=== PATIENT | female | born 2000 | race African-American/Black ===

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

== ENCOUNTER 2018-01-03 10:08 | Observation (INO) | payer MEDICAID | END 2018-01-03 11:50 | disposition home or self-care (01) | DRG 955 | LOC: LDRP 10:08 | PROVIDERS: ADMIT Obstetrics & Gynecology; ATTEND Obstetrics & Gynecology | DX: O26.899 Other specified pregnancy related conditions, unspecified trimester (principal); R10.9 Unspecified abdominal pain; Z3A.00 Weeks of gestation of pregnancy not specified | CPT/HCPCS: 59025; 76818; 81002; G0378 ==

== ENCOUNTER 2018-01-05 07:17 | Inpatient (IN) | payer MEDICAID ==
[~2018-01-05] VITALS: Ht 172.7 cm; Wt 70.3 kg
[2018-01-05] MEDS ORDERED: LACT. RINGERS/OXYTOCIN 20UNITS 1,000 ML IV SCH (07:59)
[2018-01-05] MEDS ORDERED: DERMOPLAST 60ML BOTTLE TOP PRN (08:00)
[2018-01-05] MEDS ORDERED: PHISODERM TOP SOLN 240ML BTL TOP PRN (08:00)
[2018-01-05] MEDS ORDERED: LIDOCAINE 2%HCL (LOCAL ANESTH.) INJ 20ML MDV IJ PRN (08:00)
[2018-01-05] MEDS ORDERED: WITCH HAZEL-GLYCERIN PAD TOP PRN (08:00)
[2018-01-05] MEDS: LACTATED RINGER'S 1,000 ML IV SCH ×2 (08:15→15:59)
[2018-01-05 08:47] LABS: Basophils # (auto) 0 uL; Eosinophils # (auto) 0 uL; Eosinophils % (auto) 0.4 % (0.0-7.0); Hemoglobin 9.6 g/dL (12.2-16.2); Monocytes # (auto) 0.5 uL
[2018-01-05 08:49] LABS: Basophils % (auto) 0.5 % (0.0-2.0); Hematocrit 30.2 % (36.0-46.0); Lymphocytes % (auto) 27.7 % (10.0-50.0); Mean Corpuscular Hemoglobin 21.8 pg (28.0-32.0); Mean Corpuscular Hgb Conc. 31.9 g/dL (32.0-36.0); Mean Corpuscular Volume 68.3 fL (80.0-100.0); Monocytes % (auto) 7.2 % (0.0-12.0); Neutrophils # (auto) 4.7 uL; Neutrophils % (auto) 64.2 % (37.0-80.0); Platelet Count (auto) 157 10^3/uL (140-450); Red Blood Cells 4.42 10^6/uL (4.0-5.20); Red Cell Distribution Width 18.3 % (11.8-14.3); White Blood Cell 7.3 10^3/uL (4.4-10.8)
[2018-01-05 09:01] LABS: INR 0.86 (0.9-1.15); Partial Thromboplastin Time 30.7 sec (22.64-33.71); Prothrombin Time 9.4 sec (9.37-12.3)
[2018-01-05 09:02] LABS: Urine Bacteria FEW /hpf (None Seen); Urine Blood Negative /uL (Negative); Urine Specific Gravity 1.006 (1.001-1.035); Urine WBC 19 /hpf (0 - 5)
[2018-01-05 09:06] LABS: Albumin 2.7 g/dL (3.4-5.0); BUN/Creatinine Ratio 7.5; Calcium 7.9 mg/dL (8.5-10.1); Potassium 3.5 mmol/L (3.5-5.1)
[2018-01-05 09:07] LABS: Alcohol, Urine < 3.0 mg/dL (0-5); Amphetamine Screen, Urine NEGATIVE (NEGATIVE); Barbiturate Scree,Urine NEGATIVE (NEGATIVE); Benzodiazephine Screen, Urine NEGATIVE (NEGATIVE); Cannabinoid Screen, Urine NEGATIVE (NEGATIVE); Cocaine Screen, Urine NEGATIVE (NEGATIVE); Opiate Scree,Urine NEGATIVE (NEGATIVE); Phencyclidine Screen, Urine NEGATIVE (NEGATIVE)
[2018-01-05 09:08] LABS: Bilirubin, Total 0.2 mg/dL (0.2-1.0); Total Protein 6.7 g/dL (6.4-8.2)
[2018-01-05] MEDS ORDERED: NALBUPHINE HCL 10 MG/1ml INJECTION IV PRN (18:15)
[2018-01-05] MEDS ORDERED: LIDOCAINE HCL 2 %PF INJ 10ML AMP IJ ONE ×2 (19:30→20:30)
[2018-01-05] MEDS ORDERED: fentaNYL CITRATE 100 MCG/2 ML VL IV ONE ×2 (19:30→20:30)
[2018-01-05] MEDS ORDERED: NALOXONE HCL 0.4 MG/ML VIAL IV PRN (19:30)
[2018-01-05] MEDS ORDERED: ePHEDrine SULFATE 50 MG/ML AMP IV PRN (19:30)
[2018-01-05] MEDS ORDERED: fentaNYL W ROPIVACAINE 150 ML EPI SCH ×2 (19:30→20:30)
[2018-01-05] MEDS ORDERED: fentaNYL W ROPIVACAINE 150 ML EPI ONE (19:50)
[2018-01-05] MEDS ORDERED: ePHEDrine SULFATE 50 MG/ML AMP IV ONE (20:30)
[2018-01-05] MEDS ORDERED: NALOXONE HCL 0.4 MG/ML VIAL IV ONE (20:30)
[2018-01-06 04:00] VITALS: BP 109/55
[2018-01-06 07:30] VITALS: BP 100/58
[2018-01-06] MEDS: IBUPROFEN 600 MG TAB PO PRN (08:27)
[2018-01-06] MEDS: DOCUSATE CALCIUM 240 MG CAP PO SCH (10:30)
[2018-01-06] MEDS ORDERED: INFLUENZA QUAD 2017-2018 0.5 ML SYRG IM ONE (11:15)
[2018-01-06 11:30] VITALS: BP 108/56
[2018-01-06 15:30] VITALS: BP 118/57
[2018-01-06 18:45] VITALS: BP 106/62
[2018-01-06 22:40] VITALS: BP 104/58
[2018-01-07 03:30] VITALS: BP 123/67
[2018-01-07] MEDS: IBUPROFEN 600 MG TAB PO PRN (03:44)
[2018-01-07] MEDS ORDERED: TETANUS-DIPTH-ACEL PERTUSSIS 0.5ML SYRG IM ONE (06:30)
[2018-01-07 07:07] VITALS: BP 112/59
[2018-01-07] MEDS: DOCUSATE CALCIUM 240 MG CAP PO SCH (09:53)
== END 2018-01-07 10:15 | disposition home or self-care (01) | DRG 560 ==
LOC: LDRP 07:17
PROVIDERS: ADMIT Specialist; ATTEND Specialist
PROC: 10E0XZZ Delivery of Products of Conception, External Approach (ICD-10-PCS; principal; 2018-01-05)
PROC: 0HQ9XZZ Repair Perineum Skin, External Approach (ICD-10-PCS; 2018-01-05)
PROC: 00HU33Z Insertion of Infusion Device into Spinal Canal, Percutaneous Approach (ICD-10-PCS; 2018-01-05)
PROC: 3E0R3BZ Introduction of Anesthetic Agent into Spinal Canal, Percutaneous Approach (ICD-10-PCS; 2018-01-05)
DX: O36.5930 Maternal care for other known or suspected poor fetal growth, third trimester, not applicable or unspecified (principal); O48.0 Post-term pregnancy; O70.0 First degree perineal laceration during delivery; Z37.0 Single live birth; Z3A.40 40 weeks gestation of pregnancy; Z23 Encounter for immunization
CPT/HCPCS: 36415; 59025; 59409; 62282; 80053; 80307; 81001; 81002; 85025; 85610; 85730; 86850; 86900; 86901; 90715; 94762; 96361; 96365; 96372; J2590; J3010

== ENCOUNTER → 2021-09-27 | Outpatient (CLI) | payer MEDICAID ==
[2021-09-27 09:59] LABS: Amphetamine Screen, Urine NEGATIVE (NEGATIVE); Barbiturate Scree,Urine NEGATIVE (NEGATIVE); Benzodiazephine Screen, Urine NEGATIVE (NEGATIVE); Cannabinoid Screen, Urine POSITIVE (NEGATIVE); Cocaine Screen, Urine NEGATIVE (NEGATIVE); Opiate Scree,Urine NEGATIVE (NEGATIVE); Phencyclidine Screen, Urine NEGATIVE (NEGATIVE)
== END | disposition home or self-care (01) ==
LOC: LAB 09:13
PROVIDERS: ATTEND Obstetrics & Gynecology
DX: Z34.80 Encounter for supervision of other normal pregnancy, unspecified trimester (principal); Z3A.00 Weeks of gestation of pregnancy not specified
CPT/HCPCS: 80307

== ENCOUNTER 2022-01-10 11:20 | Observation (INO) | payer MEDICAID ==
[~2022-01-10] VITALS: Ht 172.7 cm; Wt 61.2 kg
[2022-01-10] MEDS ORDERED: LACTATED RINGER'S 1,000 ML IV ONE (12:30)
[2022-01-10 12:48] LABS: Urine Bacteria FEW /hpf (None Seen); Urine Blood Negative /uL (Negative); Urine Specific Gravity 1.004 (1.001-1.035); Urine WBC 2 /hpf (0 - 5)
[2022-01-10] MEDS ORDERED: ceFAZolin 2 GM in D5W 5% 100 ML IV ONE (13:45)
[2022-01-10] MEDS ORDERED: TERBUTALINE SULFATE 1 MG/ML 1ML VIAL SC ONE (14:00)
[2022-01-10] MEDS ORDERED: CEPH-322 PO (14:52)
[2022-01-10] MEDS ORDERED: NIF10C GT (14:56)
== END 2022-01-10 16:15 | disposition home or self-care (01) ==
LOC: LDRP 11:20
PROVIDERS: ADMIT Obstetrics & Gynecology; ATTEND Obstetrics & Gynecology
DX: O60.03 Preterm labor without delivery, third trimester (principal); O62.9 Abnormality of forces of labor, unspecified; O26.893 Other specified pregnancy related conditions, third trimester; R10.31 Right lower quadrant pain; N89.8 Other specified noninflammatory disorders of vagina; Z3A.32 32 weeks gestation of pregnancy
CPT/HCPCS: 59025; 81001; 81002; 94760; 96361; 96365; 96372; G0378; J0690; J3105; J7060; 96360; 96366

== ENCOUNTER 2022-01-14 10:09 | Observation (INO) | payer MEDICAID ==
[~2022-01-14] VITALS: Ht 172.7 cm; Wt 61.2 kg
[~2022-01-14 10:09] MED LIST changes: +CEPH-322 PO; +NIF10C GT
[2022-01-14] MEDS ORDERED: LACTATED RINGER'S 1,000 ML IV ONE (11:45)
[2022-01-14] MEDS ORDERED: TERBUTALINE SULFATE 1 MG/ML 1ML VIAL SC ONE (11:45)
== END 2022-01-14 13:20 | disposition home or self-care (01) ==
LOC: LDRP 10:09 → UNDODISOB 12:40
PROVIDERS: ADMIT Obstetrics & Gynecology; ATTEND Obstetrics & Gynecology
DX: O60.03 Preterm labor without delivery, third trimester (principal); O62.9 Abnormality of forces of labor, unspecified; Z3A.32 32 weeks gestation of pregnancy
CPT/HCPCS: 59025; 81002; 94760; 96360; 96372; G0378; J3105

== ENCOUNTER 2022-01-17 07:16 | Observation (INO) | payer MEDICAID ==
[2022-01-23] MEDS ORDERED: BETAMETHASONE ACET (30mg/5ml) 5ml Vial 6mg/ml IM ONE (11:00)
== END 2022-01-23 11:28 | disposition home or self-care (01) ==
LOC: LDRP 01-23 10:18
PROVIDERS: ADMIT Obstetrics & Gynecology Obstetrics; ATTEND Obstetrics & Gynecology Obstetrics
DX: O60.03 Preterm labor without delivery, third trimester (principal); O62.9 Abnormality of forces of labor, unspecified; Z3A.34 34 weeks gestation of pregnancy
CPT/HCPCS: 59025; 81002; 94760; 96372; G0378

== ENCOUNTER 2022-01-22 14:20 | Observation (INO) | payer MEDICAID ==
[~2022-01-22] VITALS: Ht 172.7 cm; Wt 61.2 kg
[2022-01-22] MEDS ORDERED: BETAMETHASONE ACET (30mg/5ml) 5ml Vial 6mg/ml IM ONE (15:15)
== END 2022-01-22 15:46 | disposition home or self-care (01) ==
LOC: LDRP 14:20
PROVIDERS: ADMIT Obstetrics & Gynecology; ATTEND Obstetrics & Gynecology
DX: O60.03 Preterm labor without delivery, third trimester (principal); O99.323 Drug use complicating pregnancy, third trimester; F12.90 Cannabis use, unspecified, uncomplicated; Z3A.34 34 weeks gestation of pregnancy
CPT/HCPCS: 59025; 81002; 94760; G0378; J0702

== ENCOUNTER 2022-01-27 08:43 | Observation (INO) | payer MEDICAID | END 2022-01-27 11:12 | disposition home or self-care (01) | LOC: LDRP 10:00 | PROVIDERS: ADMIT Obstetrics & Gynecology; ATTEND Obstetrics & Gynecology | DX: O60.03 Preterm labor without delivery, third trimester (principal); O46.93 Antepartum hemorrhage, unspecified, third trimester; O62.9 Abnormality of forces of labor, unspecified; Z3A.34 34 weeks gestation of pregnancy | CPT/HCPCS: 59025; 81002; 94760; G0378 ==

== ENCOUNTER → 2022-01-31 | Outpatient (CLI) | payer MEDICAID ==
[2022-01-31 10:43] LABS: Basophils # (auto) 0 10 ^3/uL (0-0.2); Eosinophils # (auto) 0 10 ^3/uL (0-0.8); Hemoglobin 10.2 g/dL (12.2-16.2); Lymphocytes # (auto) 2.4 10 ^3/uL (0.4-5.4); Monocytes # (auto) 0.6 10 ^3/uL (0-1.3); Nucleated Red Blood Cells % 0.1 %
[2022-01-31 10:45] LABS: Basophils % (auto) 0.6 % (0.0-2.0); Eosinophils % (auto) 0.7 % (0.0-7.0); Hematocrit 30.9 % (36.0-46.0); Mean Corpuscular Hemoglobin 22.8 pg (28.0-32.0); Mean Corpuscular Hgb Conc. 33.1 g/dL (32.0-36.0); Mean Corpuscular Volume 68.9 fL (80.0-100.0); Monocytes % (auto) 9.3 % (0.0-12.0); Neutrophils # (auto) 3.7 10 ^3/uL (1.6-8.6); Neutrophils % (auto) 54.4 % (37.0-80.0); Red Blood Cells 4.48 10^6/uL (4.0-5.20); White Blood Cell 6.8 10^3/uL (4.4-10.8)
[2022-02-01 07:07] LABS: RPR Non Reactive (Non Reactive)
== END | disposition home or self-care (01) ==
LOC: LAB 10:28
PROVIDERS: ATTEND Obstetrics & Gynecology
DX: Z34.80 Encounter for supervision of other normal pregnancy, unspecified trimester (principal)
CPT/HCPCS: 36415; 84112; 85025; 86592

== ENCOUNTER 2022-02-02 12:30 | Observation (INO) | payer MEDICAID ==
[2022-02-02] MEDS ORDERED: SODIUM CHLORIDE 0.9% 1,000 ML IV ONE (15:45)
[2022-02-02] MEDS ORDERED: NIFEdipine 10 MG CAP PO ONE (17:00)
== END 2022-02-02 21:11 | disposition home or self-care (01) ==
LOC: LDRP 12:30
PROVIDERS: ADMIT Obstetrics & Gynecology; ATTEND Obstetrics & Gynecology
DX: O34.63 Maternal care for abnormality of vagina, third trimester (principal); N89.8 Other specified noninflammatory disorders of vagina; O62.9 Abnormality of forces of labor, unspecified; O26.893 Other specified pregnancy related conditions, third trimester; R42 Dizziness and giddiness; O99.323 Drug use complicating pregnancy, third trimester; F12.90 Cannabis use, unspecified, uncomplicated; Z3A.35 35 weeks gestation of pregnancy
CPT/HCPCS: 59025; 76818; 81002; 84112; 96360; 96361; G0378; Q0114

== ENCOUNTER 2022-02-09 08:01 | Observation (INO) | payer MEDICAID | END 2022-02-10 11:09 | disposition home or self-care (01) | LOC: LDRP 02-10 09:51 | PROVIDERS: ADMIT Obstetrics & Gynecology; ATTEND Obstetrics & Gynecology | DX: O60.03 Preterm labor without delivery, third trimester (principal); Z3A.36 36 weeks gestation of pregnancy | CPT/HCPCS: 59025; 81002; 94760; G0378 ==

== ENCOUNTER 2022-02-20 17:42 | Inpatient (IN) | payer MEDICAID ==
[~2022-02-20] VITALS: Ht 172.7 cm; Wt 61.7 kg
[2022-02-20] MEDS ORDERED: PHISODERM TOP SOLN 240ML BTL TOP PRN (18:15)
[2022-02-20] MEDS ORDERED: BUTORPHANOL TARTRATE 2 MG/1 ML VIAL IV PRN ×2 (18:15)
[2022-02-20] MEDS ORDERED: PROMETHAZINE HCL 25 MG/ML 1ML IV PRN (18:15)
[2022-02-20] MEDS ORDERED: LIDOCAINE 2%HCL (LOCAL ANESTH.) INJ 10ml MDV IJ PRN (18:15)
[2022-02-20] MEDS ORDERED: WITCH HAZEL-GLYCERIN PAD TOP PRN (18:15)
[2022-02-20] MEDS ORDERED: DERMOPLAST 60ML BOTTLE TOP PRN (18:15)
[2022-02-20 19:22] LABS: Basophils # (auto) 0 10 ^3/uL (0-0.2); Eosinophils # (auto) 0.1 10 ^3/uL (0-0.8); Hemoglobin 9.4 g/dL (12.2-16.2); Lymphocytes # (auto) 2.8 10 ^3/uL (0.4-5.4); Mean Corpuscular Hemoglobin 22.3 pg (28.0-32.0); Mean Corpuscular Hgb Conc. 32.7 g/dL (32.0-36.0); Monocytes # (auto) 0.7 10 ^3/uL (0-1.3); Neutrophils # (auto) 4.2 10 ^3/uL (1.6-8.6); Red Cell Distribution Width 15.8 % (11.8-14.3); White Blood Cell 7.8 10^3/uL (4.4-10.8)
[2022-02-20 19:24] LABS: Basophils % (auto) 0.2 % (0.0-2.0); Eosinophils % (auto) 0.9 % (0.0-7.0); Hematocrit 28.7 % (36.0-46.0); Lymphocytes % (auto) 36.3 % (10.0-50.0); Mean Corpuscular Volume 68.3 fL (80.0-100.0); Monocytes % (auto) 9.3 % (0.0-12.0); Neutrophils % (auto) 53.3 % (37.0-80.0); Nucleated Red Blood Cells % 0.2 %; Red Blood Cells 4.19 10^6/uL (4.0-5.20)
[2022-02-20 19:32] LABS: Urine Bacteria FEW /hpf (None Seen); Urine Blood Negative /uL (Negative); Urine Specific Gravity 1.004 (1.001-1.035); Urine WBC 3 /hpf (0 - 5)
[2022-02-20 19:39] LABS: INR 0.94 (0.9-1.15); Partial Thromboplastin Time 31.6 sec (23.6-33.0)
[2022-02-20 19:40] LABS: Albumin 2.5 g/dL (3.4-5.0); Calcium 8.6 mg/dL (8.5-10.1); Potassium 3.6 mmol/L (3.5-5.1)
[2022-02-20 19:40] LABS: Alcohol, Urine < 3.0 mg/dL (0-10); Amphetamine Screen, Urine NEGATIVE (NEGATIVE); Barbiturate Scree,Urine NEGATIVE (NEGATIVE); Benzodiazephine Screen, Urine NEGATIVE (NEGATIVE); Cannabinoid Screen, Urine NEGATIVE (NEGATIVE); Cocaine Screen, Urine NEGATIVE (NEGATIVE); Opiate Scree,Urine NEGATIVE (NEGATIVE); Phencyclidine Screen, Urine NEGATIVE (NEGATIVE)
[2022-02-20 19:45] LABS: BUN/Creatinine Ratio 9.8; Bilirubin, Total 0.3 mg/dL (0.2-1.0); Total Protein 7.1 g/dL (6.4-8.2)
[2022-02-20] MEDS: LACTATED RINGER'S 1,000 ML IV SCH ×2 (19:47→20:32)
[2022-02-20] MEDS ORDERED: LACT. RINGERS/OXYTOCIN 20UNITS 500 ML IV ONE ×2 (20:00→20:30)
[2022-02-21] MEDS: LACTATED RINGER'S 1,000 ML IV SCH (04:10)
[2022-02-22 07:07] LABS: RPR Non Reactive (Non Reactive)
== END 2022-02-21 05:48 | disposition home or self-care (01) | DRG 566 ==
LOC: UNDOADMOB 17:42 → LDRP 17:42 → OBSVTOIN 18:00 → INTOOBSV 18:00 → LDRP 18:10 → UNDODISIN 02-21 06:47 → EDSTATUS 03-09 15:03
PROVIDERS: ADMIT Obstetrics & Gynecology Obstetrics; ATTEND Obstetrics & Gynecology Obstetrics
DX: O47.1 False labor at or after 37 completed weeks of gestation (principal); Z20.822 Contact with and (suspected) exposure to COVID-19; Z3A.38 38 weeks gestation of pregnancy
CPT/HCPCS: 36415; 59025; 80053; 80307; 81001; 81002; 85025; 85610; 85730; 86592; 86850; 86900; 86901; 94760; 96360; 96361; G0378

== ENCOUNTER 2022-02-22 11:47 | Inpatient (IN) | payer MEDICAID ==
[~2022-02-22] VITALS: Ht 172.7 cm; Wt 64.4 kg
[2022-02-22] MEDS ORDERED: DERMOPLAST 60ML BOTTLE TOP PRN (17:00)
[2022-02-22] MEDS ORDERED: PHISODERM TOP SOLN 240ML BTL TOP PRN (17:00)
[2022-02-22] MEDS ORDERED: LIDOCAINE 2%HCL (LOCAL ANESTH.) INJ 10ml MDV IJ PRN (17:00)
[2022-02-22] MEDS ORDERED: BUTORPHANOL TARTRATE 2 MG/1 ML VIAL IV PRN ×2 (17:00)
[2022-02-22] MEDS ORDERED: PROMETHAZINE HCL 25 MG/ML 1ML IV PRN (17:00)
[2022-02-22] MEDS: LACTATED RINGER'S 1,000 ML IV SCH (17:16)
[2022-02-22 17:25] LABS: Urine Bacteria FEW /hpf (None Seen); Urine Blood Negative /uL (Negative); Urine Specific Gravity 1.005 (1.001-1.035); Urine WBC 3 /hpf (0 - 5)
[2022-02-22 17:34] LABS: Alcohol, Urine < 3.0 mg/dL (0-10); Amphetamine Screen, Urine NEGATIVE (NEGATIVE); Barbiturate Scree,Urine NEGATIVE (NEGATIVE); Benzodiazephine Screen, Urine NEGATIVE (NEGATIVE); Cannabinoid Screen, Urine NEGATIVE (NEGATIVE); Cocaine Screen, Urine NEGATIVE (NEGATIVE); Opiate Scree,Urine NEGATIVE (NEGATIVE); Phencyclidine Screen, Urine NEGATIVE (NEGATIVE)
[2022-02-22] MEDS ORDERED: LACT. RINGERS/OXYTOCIN 20UNITS 500 ML IV ONE ×2 (18:45→19:15)
[2022-02-22] MEDS ORDERED: LACT. RINGERS/OXYTOCIN 20UNITS 1,000 ML IV SCH (18:45)
[2022-02-22] MEDS ORDERED: TERBUTALINE SULFATE 1 MG/ML 1ML VIAL SC PRN (18:45)
[2022-02-23] MEDS: LACTATED RINGER'S 1,000 ML IV SCH ×2 (00:27→09:32)
[2022-02-23] MEDS ORDERED: ePHEDrine SULFATE 50 MG/ML AMP IV ONE (08:00)
[2022-02-23] MEDS ORDERED: NALOXONE HCL 0.4 MG/ML VIAL IV ONE (08:00)
[2022-02-23] MEDS ORDERED: ROPIVACAINE HCL 200 ML EPI SCH (08:00)
[2022-02-23] MEDS ORDERED: fentaNYL CITRATE 100 MCG/2 ML VL IV ONE (08:00)
[2022-02-23] MEDS ORDERED: LACTATED RINGER'S 1,000 ML IV ONE (08:00)
[2022-02-23] MEDS ORDERED: LIDOCAINE HCL 2 %PF INJ 10ML AMP IJ ONE (08:00)
[2022-02-23] MEDS ORDERED: METHYLERGONOVINE MALEATE 0.2 MG/ML AMP IM ONE ×2 (14:12→14:15)
[2022-02-23] MEDS ORDERED: ONDANSETRON ODT 4 MG TAB PO PRN (16:30)
[2022-02-23] MEDS: IBUPROFEN 600 MG TAB PO PRN (16:30)
[2022-02-23 17:31] VITALS: BP 131/78
[2022-02-23] MEDS: WITCH HAZEL-GLYCERIN PAD TOP PRN (17:36)
[2022-02-23] MEDS: ACETAMINOPHEN 325 MG TAB PO PRN ×2 (17:42→23:27)
[2022-02-23] MEDS ORDERED: IBUPROFEN 800 MG TAB PO SCH (18:00)
[2022-02-23 19:30] VITALS: BP 120/57
[2022-02-23] MEDS ORDERED: DOCUSATE SOD 100 MG CAP PO SCH (22:00)
[2022-02-23 23:00] VITALS: BP 116/59
[2022-02-24 03:00] VITALS: BP 111/64
[2022-02-24] MEDS: IBUPROFEN 600 MG TAB PO PRN ×2 (06:53→15:18)
[2022-02-24 07:00] VITALS: BP 106/62
[2022-02-24] MEDS ORDERED: ROPIVACAINE HCL 200 ML EPI SCH (08:00)
[2022-02-24] MEDS ORDERED: TETANUS-DIPTH-ACEL PERTUSSIS 0.5ML SYR Tdap IM ONE (09:00)
[2022-02-24 11:00] VITALS: BP 110/60
[2022-02-24] MEDS: WITCH HAZEL-GLYCERIN PAD TOP PRN (15:18)
[2022-02-24 15:30] VITALS: BP 106/69
== END 2022-02-24 16:30 | disposition home or self-care (01) | DRG 560 ==
LOC: LDRP 11:47 → UNDOADMOB 11:47 → INTOOBSV 16:47 → OBSVTOIN 16:47 → LDRP 16:56 → UNDODISIN 02-24 17:45 → EDSTATUS 03-09 14:55
PROVIDERS: ADMIT Obstetrics & Gynecology; ATTEND Obstetrics & Gynecology
PROC: 0UQMXZZ Repair Vulva, External Approach (ICD-10-PCS; principal; 2022-02-22)
PROC: 10E0XZZ Delivery of Products of Conception, External Approach (ICD-10-PCS; 2022-02-22)
PROC: 3E0R3BZ Introduction of Anesthetic Agent into Spinal Canal, Percutaneous Approach (ICD-10-PCS; 2022-02-22)
PROC: 00HU33Z Insertion of Infusion Device into Spinal Canal, Percutaneous Approach (ICD-10-PCS; 2022-02-22)
DX: O71.82 Other specified trauma to perineum and vulva (principal); Z37.0 Single live birth; Z20.822 Contact with and (suspected) exposure to COVID-19; Z3A.38 38 weeks gestation of pregnancy
CPT/HCPCS: 36415; 59025; 59409; 62282; 80307; 81001; 81002; 90715; 94760; 96360; 96361; 96365; 96366; 96372; G0378; J2001; J2590